=== PATIENT | male | born 1950 | race Two or more races ===

== ENCOUNTER 2025-03-19 03:03 | Emergency (ER) | payer MEDICAID, SELFPAY ==
[2025-03-19] VITALS (7 sets, daily range): BP systolic 132–174; BP diastolic 96–108; PULSE 61–65; RESP 10–17; TEMP 36.7–37.1; O2SAT 95–97; BMI 31.5
--- NOTE | 2025-03-19 03:39 | EKG_ITS ---
[facility] Test Date: 2025-03-19 Pat Name: ADDISON REDDY Department: Room: - Gender: Male [employer]: : 1950 Requested By: Christopher Berger Order Number: [id number] Reading MD: Christopher Berger Measurements Intervals [place] Rate: 62 P: 25 [place]: 182 QRS: 11 QRSD: 96 T: 34 QT: 394 QTc: 401 Interpretive Statements SINUS RHYTHM No previous ECG available for comparison /store/S0/[id number]/ecg/[id number].pdf
[2025-03-19 04:08] LABS: Basophils # (Auto) 0.1 Thou/mm3 (0.0-0.2); Basophils % (Auto) 1 % (0-2.5); Eosinophils # (Auto) 0.2 Thou/mm3 (0.0-0.5); Eosinophils % (Auto) 3 % (0-10); Hematocrit 43.8 % (41.0-53.0); Hemoglobin 14.9 g/dL (13.5-16.0); Immature Granulocytes Auto 0.02 Thou/mm3 (0.00-0.00); Lymphocytes # (Auto) 1.4 Thou/mm3 (1.0-4.8); Lymphocytes % (Auto) 24 % (10-50); Mean Corpuscular HGB Conc 34.0 g/dl (31.0-37.0); Mean Corpuscular Hemoglobin 29.2 pg (25.0-35.0); Mean Corpuscular Volume 86 fL (80-100); Monocytes # (Auto) 0.6 Thou/mm3 (0.0-0.8); Monocytes % (Auto) 10 % (0-12); Neutrophils # (Auto) 3.6 Thou/mm3 (1.8-7.7); Neutrophils % (Auto) 61 % (37-80); Nucleated Red Blood Cell # 0.00 Thou/mm3 (0.00-0.00); Nucleated Red Blood Cell % 0 /100 WBC (0); Platelet Count 164 Thou/mm3 (140-440); RDW Standard Deviation 40.1 fL (35.1-43.9); Red Blood Count 5.11 Miln/mm3 (4.50-5.90); White Blood Count 5.8 Thou/mm3 (3.8-10.6)
[2025-03-19 04:27] LABS: Alanine Aminotransferase 15 U/L (10-49); Albumin, Serum 4.5 gm/dL (3.4-4.8); Albumin/Globulin Ratio 1.9 (1.2-2.2); Alkaline Phosphatase 72 U/L (46-116); Anion Gap 10 (7-16); Aspartate Amino Transferase 20 U/L (0-34); BUN/Creatinine Ratio 11 Ratio (12-20); Bilirubin,Total 0.7 mg/dL (0.3-1.2); Blood Urea Nitrogen 17 mg/dL (9-23); Calcium 9.3 mg/dL (8.3-10.6); Calcium (Corrected) 9.3 mg/dL (8.5-10.1); Carbon Dioxide 25.1 mMol/L (20.0-31.0); Chloride 109 mMol/L (98-107); Creatinine (Component) 1.6 mg/dL (0.6-1.3); Estimated Creatinine Clearance 38.1 mL/min (>60); Globulin 2.4 gm/dL (2.3-3.5); Glucose 111 mg/dL (74-106); Osmolality,Calculated 289 (275-295); Potassium 4.1 mMol/L (3.4-5.1); Sodium 144 mMol/L (136-145); Total Protein 6.9 gm/dL (5.7-8.2); Troponin I < 0.002 ng/mL (0.0-0.045); eGFR 45 See Note
--- NOTE | 2025-03-19 05:13 | PC.NURSE ---
Per pt's son, pt woke up feeling BP was elevated feeling numb to his bilateral hands and lips briefly. Pt on arrival denies sob, chest pain and scored a zero on [employer]. Pt's primary language is Ukrainian.
--- NOTE | 2025-03-19 12:14 | PD.EDADULT ---
ED General RME/HPI General Chief complaint: General Adult/Misc Complain Stated complaint: BLOOD PRESSURE HIGH, NUMBNESS TO FACE AND HANDS Time Seen by Provider: 03/19/25 03:30 Arrival date/time: 03/19/25 03:03 Limitations: no limitations RME / HPI RME / HPI narrative: 75 year old female with history of hypertension and diabetes presents to the ED for evaluation of elevated blood pressure at home. Accompanied by numbness to face and hands. Denies any weakness, unilateral weakness, changes to vision, loss of movements, chest pain, cough, shortness of breath, abdominal pain, n/v/d, or urinary symptoms. Related Data Home Medications ?Medication ?Instructions ?Recorded ?Confirmed atorvastatin 20 mg tablet (Lipitor) 20 mg PO QDAY 03/19/25 03/19/25 bisoprolol fumarate 5 mg tablet 5 mg PO QDAY 03/19/25 03/19/25 levothyroxine 100 mcg tablet 100 mcg PO QDAY 03/19/25 03/19/25 (Euthyrox) losartan 100 mg tablet 100 mg PO QDAY 03/19/25 03/19/25 metformin 1,000 mg tablet 1,000 mg PO QDAY 03/19/25 03/19/25 Allergies Allergy/AdvReac Type Severity Reaction Status Date / Time No Known Allergies Allergy Verified 03/19/25 03:07 Review of Systems Review of Systems Systems Reviewed: All systems reviewed, normal except as documented Past Medical History Past Medical History CARDIAC: Positive Hypertension OTHER HISTORY: Positive Cancer (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, 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.) Social History SMOKING STATUS: Never smoker ED Exam General Limitations: Present no limitations General appearance: Present alert and in no apparent distress Head Head exam: Present atraumatic, normocephalic and normal inspection Eye Eye exam: Present normal appearance, PERRL and EOMI ENT ENT exam: Present normal exam, normal oropharynx and mucous membranes moist Neck Neck exam: Present normal inspection, full ROM and trachea midline Chest Chest inspection: Present normal inspection and symmetric chest wall rise Respiratory Respiratory exam: Present normal lung sounds bilaterally Cardiovascular Cardiovascular exam: Present regular rate, normal rhythm and normal heart sounds Abdominal Exam Abdominal exam: Present soft and normal bowel sounds Extremities Exam Extremities exam: Present normal inspection and full ROM Back Exam Back exam: Present normal inspection and full ROM Neurological Exam Neurological exam: Present alert, oriented X3 and CN II-XII intact Psychiatric Psychiatric exam: Present normal affect and normal mood Skin Skin exam: Present warm, dry, intact and normal color Course Quality Measures none Orders Category Date Time Status EKG (ED ONLY) *Do not use* NOW Care 03/19/25 03:39 Completed EKG (ED Only) Stat Exams 03/19/25 03:39 Draft CBC Stat Lab 03/19/25 04:00 Completed CMP [Comprehensive Metabolic Panel] Stat Lab 03/19/25 04:00 Completed Troponin I Stat Lab 03/19/25 04:00 Completed cloNIDine HCL [Catapres] Med 03/19/25 06:33 Discontinued 0.1 mg PO X1 ONE Vital Signs Vital signs: Vital Signs Temperature 98.0 F 03/19/25 03:19 Pulse Rate 65 03/19/25 03:19 Respiratory Rate 17 03/19/25 03:19 Blood Pressure 163/108 H 03/19/25 03:19 Pulse Oximetry (%) 97 03/19/25 03:19 Oxygen Delivery Method Room Air 03/19/25 03:19 Pulse ox is 97% on room air which is adequate. Discharge Plan Plan Patient Disposition: HOME (Self Care) Patient condition on transfer: Stable Prescriptions/Referrals Prescriptions/Med Rec: No Action losartan 100 mg tablet 100 mg PO QDAY atorvastatin [Lipitor] 20 mg tablet 20 mg PO QDAY levothyroxine [Euthyrox] 100 mcg tablet 100 mcg PO QDAY bisoprolol fumarate 5 mg tablet 5 mg PO QDAY metformin 1,000 mg tablet 1,000 mg PO QDAY Referrals: No Primary/Family,Physician [Primary Care Provider] - In 1 week Problem List Clinical Impression: Hypertension, Mild renal insufficiency Patient/Caregiver Discharge Instructions Discharge Activity: activity as tolerated Education Materials: Controlling High Blood Pressure, ED High Blood Pressure ... Additional Instructions: Please drink more fluids every day. Take your medications as directed. Follow-up with your doctor in 1 to 2 days to recheck your blood pressure. Print Language: Turkmen Stand Alone Forms: Cathie Award Info., Patient Portal Info Letter MDM Narrative MDM hospital course (for use when minimal MDM required): Promise Carvalho, rosie scribing for and in the presence of Dr. Hinds. 0655: SBP 170s, ordered Clonidine. 0730: SBP 140s. We reviewed all the results, analysis, and treatment plans. Patient is amenable to discharge. Strict return precautions were outlined. Patient was discharged in stable condition. Clinical Information Provided by: patient Medical Records reviewed [facility] Meds/Rx considered, not ordered None Labs/Rad/Tests considered, not ordered None Chronic Illness/Social Conditions which may negatively complicate care or outcome(s)-explain: None or not applicable EKG Interpretation EKG #1: EKG Interpretation: EKG @ 03:49 AM. Normal sinus rhythm, rate 62, no STEMI. Labs Labs: interpreted by ri Lab(s) Interpretation(s): CBC within normal limits. CMP shows mild renal insufficiency, creatinine of 1.6, eGFR 45. No previous labs for comparison. Imaging Imaging interpretation: none Medication Administration(s) Medication Administration History Discontinued Medications Clonidine (Clonidine Hcl 0.1 Mg Tablet) 0.1 mg PO X1 ONE Stop: 03/19/25 06:34 Last Admin: 03/19/25 06:58 Dose: 0.1 mg Documented By: SF See above Diagnosis Diagnoses ruled out and/or further discussions: Hypertension Mild renal insufficiency
== END 2025-03-19 08:52 | disposition home or self-care (01) ==
PROVIDERS: Physician Assistant; Emergency Provider Family Medicine
DX: N28.9 Disorder of kidney and ureter, unspecified (principal); E11.29 Type 2 diabetes mellitus with other diabetic kidney complication; I10 Essential (primary) hypertension
CPT/HCPCS: 36415; 80053; 84484; 85025; 93005; 99282; A9270